=== PATIENT | male | born 1970 | race Caucasian/White ===

== ENCOUNTER → 2020-05-10 | Outpatient (CLI) | payer OTHER ==
--- NOTE | 2020-05-10 12:26 | KCIC ---
EXAMINATION: Magnetic resonance imaging (MRI) of the cervical spine without contrast 05/10/2020 10:07 A M HISTORY: Cervical radiculopathy and progression of low back pain TECHNIQUE: Multiplanar multi-weighted MRI of the cervical spine was performed without intravenous con trast using the standard cervical spine protocol. Contrast information: None administered COMPARISON: None available. FINDINGS: There is 2 mm anterolisthesis of C4 on C5 and 2 mm retrolisthesis of C5 on C6. There is complete atla ntooccipital assimilation. There is osseous fusion of T1-T2 with fusion of the T1-T2 facets. There is osseous fusion of the facets of C1-C2 and partial osseous fusion of C2-C3 facets. Posterior fossa is normal in appearance. Vertebral artery flow voids are maintained. There is levoconvex curvature of t he cervical spine. Craniocervical junction appears patent. There is no prevertebral edema. No paraspi nal soft tissue abnormality. The skull base there is suggestion of an expansile cyst measuring 1.4 x 0.9 cm or arachnoid granulation. C2-C3: There is a posterior disc osteophyte complex. There is severe right and moderate left facet ar thropathy. Moderate to severe right and moderate left neural foraminal stenosis. There is moderate to severe spinal canal stenosis with deformity of the cord and mild cord signal alteration suggestive o f cord edema or myelomalacia. There is ligamentum flavum infolding. C3-C4: There is a posterior disc osteophyte complex with central disc protrusion. There is severe lef t and moderate facet arthropathy. Moderate uncovertebral joint disease. Severe left and mild right ne uroforaminal stenosis. Severe spinal canal stenosis with deformity of the cord and cord signal altera tion suggestive of cord edema or myelomalacia. C4-C5: There is a posterior disc osteophyte complex asymmetric to the left. There is moderate facet a rthropathy, left greater than right. There is moderate left uncovertebral joint disease. Severe left and moderate right neural foraminal stenosis. Moderate spinal canal stenosis with mild form of the co rd. No cord signal alteration. C5-C6: There is a posterior disc osteophyte complex which appear symmetric. Mild facet arthropathy. S evere left and moderate right neuroforaminal stenosis. Moderate spinal canal stenosis with mild defor mity of the cord, exacerbated by ligamentum flavum infolding. No cord signal alteration. C6-C7: Disc is normal in configuration. No significant facet arthropathy. No neuroforaminal or spinal canal stenosis. C7-T1: Disc is normal in configuration. No neuroforaminal or spinal canal stenosis. IMPRESSION: 1. 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 There is fusion of the facet joints at C2-C3 and partial fusion at C3-C4. There is osseous fusion of the T1-T2 vertebral bodies. Findings suggest Klip pel-Feil syndrome. CT cervical spine could be of benefit to further delineate osseous anatomy. 2. Severe degenerative disc disease at C2-C3 and C3-C4 moderate changes at C4-C5 and C5-C6 as describ ed in detail above. There is cord edema or myelomalacia at C2-C3 and C3-C4. FOR INTERNAL CODING PURPOSES Critical result: Findings discussed with Dr. Tao at 05/10/2020 12:23 PM. RESULT CODE: (C) Electronically signed by: Elaine Lorenz MD (05/10/2020 12:23 PM) [id number]
--- NOTE | 2020-05-10 12:38 | KCIC ---
EXAMINATION: Magnetic resonance imaging (MRI) of the lumbar spine without contrast 05/10/2020 10:07 AM HISTORY: Progression of low back pain. Lumbar pain and stiffness. TECHNIQUE: Multiplanar multi-weighted MRI of the lumbar spine was performed without intravenous contr ast using the standard lumbar spine protocol. Contrast information: None administered. COMPARISON: None available. FINDINGS: There is 2 mm retrolisthesis of T12 on L1 and L1 on L2. There is a 6 mm retrolisthesis of L3 on L4. T here is advanced disc height loss at L3-L4 with Modic type I endplate degenerative changes and endpla te irregularity. Vertebral body heights are maintained. No acute fracture is identified. Minimal ante rior wedge deformity of T12. Schmorl's nodes are identified at T12, L1, L2, L3 and L4 without signifi cant height loss. Conus medullaris terminates at L1. Distal spinal cord signal intensity is normal on all sequences. There is mild disc height loss at L1-L2, moderate disc height loss at L2-L3 and mild disc height loss L5-S1. Annular fissures identified at all levels of lumbar spine. Abdominal aorta is normal in caliber. Mild distention of the urinary bladder with trabeculation of the bladder wall. L2-L3: There is a large circumferential disc bulge. Moderate facet arthropathy ligamentum flavum info lding. Moderate bilateral neural foraminal stenosis. Severe spinal canal stenosis with redundancy of the nerve roots above this level. L3-L4: There is a large circumferential disc bulge with central disc extrusion. Moderate facet arthro [place] ligamentum flavum infolding. Severe bilateral neuroforaminal stenosis, left greater than right. There is severe spinal canal stenosis with severe left lateral recess stenosis. L4-L5: There is disc bulge with central disc protrusion. Moderate facet arthropathy. Severe left and moderate right neuroforaminal stenosis. Mild to moderate spinal canal stenosis. Left lateral recess s tenosis. Deformity of the right lamina could reflect partial hemilaminectomy changes. L5-S1: There is a central disc protrusion. Moderate facet arthropathy. Suspect left hemilaminectomy c hanges. No neuroforaminal or spinal canal stenosis. IMPRESSION: Moderate to advanced degenerative changes of the lumbar spine, most prominent at L2-L3 and L3-L4 as d escribed in detail above. Electronically signed by: Elaine Lorenz MD (05/10/2020 12:36 PM) [id number]
== END ==
LOC: KCIC MRI 10:02
PROVIDERS: ATTEND Family Medicine
DX: M47.22 Other spondylosis with radiculopathy, cervical region (principal); M50.11 Cervical disc disorder with radiculopathy, high cervical region; M48.02 Spinal stenosis, cervical region; M47.816 Spondylosis without myelopathy or radiculopathy, lumbar region; M51.26 Other intervertebral disc displacement, lumbar region
CPT/HCPCS: 72141; 72148